=== PATIENT | female | born 1950 | race African-American/Black ===

== ENCOUNTER 2017-03-14 12:32 | Emergency (ER) | payer OTHER ==
[~2017-03-14] VITALS: Ht 162.6 cm; Wt 70.0 kg
[2017-03-14 12:48] VITALS: BP 178/83; PULSE 112; RESP 18; TEMP 98.4; O2SAT 100
--- NOTE | 2017-03-14 13:23 | PD ---
HPI Chief Complaint: Abdominal Pain Time Seen by Provider: 13:21 Travel History International Travel<30 days: No Contact w/Intl Traveler<30days: No Traveled to known affect area: No History of Present Illness HPI Patient comes in complaining of generalized abdominal pain that began after eating breakfast this morning. Patient reports nonbloody vomit times 3 episodes and associated nausea with this. Patient family at bedside states that patient has metastatic breast cancer to the liver and was having her ascites treated with Lasix however feels is not working currently. Patient denies any chest pain, shortness of breath, fevers, or loss of bowel or bladder. PFSH Past Medical History Cancer: Yes (metastatic breast) Social History Tobacco Use: No Substance Use: No Allergies-Medications (Allergen,Severity, Reaction): Coded Allergies: Codeine (Verified Allergy, Unknown, 03/14/17) Lactose (Verified Allergy, Unknown, 03/14/17) Valium (Verified Allergy, Unknown, 03/14/17) Review of Systems Except as stated in HPI: all other systems reviewed are Neg Physical Exam Narrative GENERAL: Well-developed, overly nourished, in no acute distress, and ill appearing, but nontoxic. SKIN: Focused skin assessment warm and dry. HEAD: Atraumatic. Normocephalic. EYES: Pupils equal and round. EOMI. No scleral icterus. No injection or drainage. ENT: No nasal bleeding or discharge. Mucous membranes pink and moist. NECK: Trachea midline. Supple. No nuclear rigidity. CARDIOVASCULAR: Regular rate and rhythm. No murmur appreciated. RESPIRATORY: No accessory muscle use. No respiratory distress. Clear to auscultation. Breath sounds equal bilaterally. GASTROINTESTINAL: Abdomen firm, tender, distended. Hepatic and splenic margins not palpable. Normal bowel sounds 4. No pulsatile mass. MUSCULOSKELETAL: No obvious deformities. No clubbing. No cyanosis. No edema. Full range of motion. NEUROLOGICAL: Awake and alert. No obvious cranial nerve deficits. Motor grossly within normal limits. Normal speech. PSYCHIATRIC: Appropriate mood and affect; insight and judgment normal. Data Data Last Documented VS Vital Signs Date Time Temp Pulse Resp B/P Pulse Ox O2 Delivery O2 Flow Rate FiO2 03/14/17 12:48 98.4 112 18 178/83 100 Orders Complete Blood Count With Diff (03/14/17 13:17) Comprehensive Metabolic Panel (03/14/17 13:17) Lipase (03/14/17 13:17) Prothrombin Time / Inr (Pt) (03/14/17 13:17) Act Partial Throm Time (Ptt) (03/14/17 13:17) Urinalysis - C+S If Indicated (03/14/17 13:17) Ct Abd/Pel W Iv Contrast(Rout) (03/14/17 13:17) Iv Access Insert/Monitor (03/14/17 13:17) Ecg Monitoring (03/14/17 13:17) Oximetry (03/14/17 13:17) Electrocardiogram (03/14/17 13:17) Labs Laboratory Tests Test 03/14/17 13:50 White Blood Count 4.3 TH/MM3 Red Blood Count 3.02 MIL/MM3 Hemoglobin 8.9 GM/DL Hematocrit 25.7 % Mean Corpuscular Volume 85.3 FL Mean Corpuscular Hemoglobin 29.6 PG Mean Corpuscular Hemoglobin 34.7 % Concent Red Cell Distribution Width 16.6 % Platelet Count 61 TH/MM3 Mean Platelet Volume 9.9 FL Neutrophils (%) (Auto) 86.9 % Lymphocytes (%) (Auto) 6.3 % Monocytes (%) (Auto) 6.1 % Eosinophils (%) (Auto) 0.4 % Basophils (%) (Auto) 0.3 % Neutrophils # (Auto) 3.7 TH/MM3 Lymphocytes # (Auto) 0.3 TH/MM3 Monocytes # (Auto) 0.3 TH/MM3 Eosinophils # (Auto) 0.0 TH/MM3 Basophils # (Auto) 0.0 TH/MM3 CBC Comment AUTO DIFF MDM Medical Decision Making Medical Screen Exam Complete: Yes Emergency Medical Condition: Yes Differential Diagnosis Ascites, small bowel obstruction, ileus, ischemic bowel, other Narrative Course Patient was seen and examined. Initial laboratory radiological studies were ordered. Patient was signed out to Gurvinder Girard PA-C. Please see his documentation for final diagnosis and disposition. Cooper Mills Mar 14, 2017 13:23
[2017-03-14 14:07] LABS: AUTOMATED NEUTROPHIL # 3.7 TH/MM3 (1.8-7.7); BASOPHIL % 0.3 % (0.0-2.0); EOSINOPHIL % 0.4 % (0.0-4.0); HEMATOCRIT 25.7 % (35.0-46.0); LYMPH % 6.3 % (9.0-44.0); LYMPHOCYTE # 0.3 TH/MM3 (1.0-4.8); MEAN CELL VOLUME 85.3 FL (80.0-100.0); MEAN CORPUSCULAR HEMOGLOBIN 29.6 PG (27.0-34.0); MEAN CORPUSCULAR HGB CONC 34.7 % (32.0-36.0); MONO % 6.1 % (0.0-8.0); NEUT % 86.9 % (16.0-70.0); PLATELET COUNT 61 TH/MM3 (150-450); RED BLOOD COUNT 3.02 MIL/MM3 (4.00-5.30); RED CELL DISTRIBUTION WIDTH 16.6 % (11.6-17.2); WHITE BLOOD COUNT 4.3 TH/MM3 (4.0-11.0)
[2017-03-14 14:11] LABS: HEMO FLAGS AUTO DIFF
--- NOTE | 2017-03-14 14:13 | PD ---
HPI Chief Complaint: Abdominal Pain Time Seen by Provider: 14:13 Travel History International Travel<30 days: No Contact w/Intl Traveler<30days: No Traveled to known affect area: No History of Present Illness HPI 66-year-old Afro-[place]ien female presents to the emergency department via ambulance with history of metastatic breast cancer with metastatic liver lesions and secondary ascites, presents to emergency department with increasing abdominal pain, nausea and vomiting 1 this morning. Patient is normally treated with a [facility], but the brought her here due to her acute nature this morning. Patient is currently on chemotherapy weekly, and has been taking Lasix for her abdominal ascites. Patient's states that she takes a medication to lower her calcium was seems to be high due to her clinical condition. Patient has oxycodone that she takes occasionally for pain, but she did not take any of this this morning. Patient states that she woke up feeling well this morning and had some breakfast and laid down for a nap. She woke up with excruciating abdominal pain, and nausea. Patient has had some shortness of breath with it as well. Patient denies fever, chills, or other symptoms. Patient was originally seen by Emiliano Mills PA-C in the ambulance ha. EKG, Labs were ordered as well as CT of the abdomen. I'm now seeing the patient and Ang salvador. Patient has a history of allergies to codeine, lactose, and Valium. PFSH Past Medical History Cancer: Yes (metastatic breast) Social History Alcohol Use: No Tobacco Use: No Substance Use: No Allergies-Medications (Allergen,Severity, Reaction): Coded Allergies: Codeine (Verified Allergy, Unknown, 03/14/17) Lactose (Verified Allergy, Unknown, 03/14/17) Valium (Verified Allergy, Unknown, 03/14/17) Review of Systems Except as stated in HPI: all other systems reviewed are Neg General / Constitutional: No: Fever Eyes: No: Visual changes HENT: No: Headaches Cardiovascular: No: Chest Pain or Discomfort Respiratory: No: Shortness of Breath Gastrointestinal: Positive: Nausea, Vomiting, Abdominal Pain, Other (ascites), No: Constipation Genitourinary: No: Dysuria Musculoskeletal: No: Pain Skin: No Rash Neurologic: No: Weakness Psychiatric: No: Depression Endocrine: No: Polydipsia Hematologic/Lymphatic: No: Easy Bruising Physical Exam Narrative GENERAL: Patient appears chronically ill but not acutely septic. SKIN: Warm and dry. Poor pallor. Somewhat poor turgor. HEAD: Atraumatic. Normocephalic. EYES: Pupils equal and round. No scleral icterus. No injection or drainage. ENT: No nasal bleeding or discharge. Mucous membranes pink and dry. Pharynx is clear. Airway is patent. NECK: Trachea midline. No JVD. Supple nontender. CARDIOVASCULAR: Regular rate and rhythm. No murmurs gallops or rubs. RESPIRATORY: No accessory muscle use. Clear to auscultation. Breath sounds equal bilaterally. GASTROINTESTINAL: Abdomen soft, diffusely tender with obvious ascites. Hepatic margins enlarged liver spread of approximately 10 cm. Liver is tender with palpation. MUSCULOSKELETAL: Extremities without clubbing, cyanosis, or edema. No obvious deformities. NEUROLOGICAL: Awake and alert. No obvious cranial nerve deficits. Motor grossly within normal limits. Five out of 5 muscle strength in the arms and legs. Normal speech. PSYCHIATRIC: Appropriate mood and affect; insight and judgment normal. Data Data Last Documented VS Vital Signs Date Time Temp Pulse Resp B/P Pulse Ox O2 Delivery O2 Flow Rate FiO2 03/14/17 14:45 16 03/14/17 14:26 100 Nasal Cannula 2 03/14/17 12:48 98.4 112 178/83 Orders Complete Blood Count With Diff (03/14/17 13:17) Comprehensive Metabolic Panel (03/14/17 13:17) Lipase (03/14/17 13:17) Prothrombin Time / Inr (Pt) (03/14/17 13:17) Act Partial Throm Time (Ptt) (03/14/17 13:17) Urinalysis - C+S If Indicated (03/14/17 13:17) Iv Access Insert/Monitor (03/14/17 13:17) Ecg Monitoring (03/14/17 13:17) Oximetry (03/14/17 13:17) Electrocardiogram (03/14/17 13:17) Ondansetron Inj (Zofran Inj) (03/14/17 14:30) Morphine Inj (Morphine Inj) (03/14/17 14:30) Ct Abd/Pel W/O Iv Contrast (03/14/17 14:41) Ondansetron Inj (Zofran Inj) (03/14/17 15:30) Radiology Film Requests (03/14/17 ) Labs Laboratory Tests Test 03/14/17 13:50 White Blood Count 4.3 TH/MM3 Red Blood Count 3.02 MIL/MM3 Hemoglobin 8.9 GM/DL Hematocrit 25.7 % Mean Corpuscular Volume 85.3 FL Mean Corpuscular Hemoglobin 29.6 PG Mean Corpuscular Hemoglobin 34.7 % Concent Red Cell Distribution Width 16.6 % Platelet Count 61 TH/MM3 Mean Platelet Volume 9.9 FL Neutrophils (%) (Auto) 86.9 % Lymphocytes (%) (Auto) 6.3 % Monocytes (%) (Auto) 6.1 % Eosinophils (%) (Auto) 0.4 % Basophils (%) (Auto) 0.3 % Neutrophils # (Auto) 3.7 TH/MM3 Lymphocytes # (Auto) 0.3 TH/MM3 Monocytes # (Auto) 0.3 TH/MM3 Eosinophils # (Auto) 0.0 TH/MM3 Basophils # (Auto) 0.0 TH/MM3 CBC Comment AUTO DIFF Differential Total Cells 100 Counted Neutrophils % (Manual) 44 % Band Neutrophils % 41 % Lymphocytes % 7 % Monocytes % 5 % Basophils % 1 % Neutrophils # (Manual) 3.7 TH/MM3 Metamyelocytes 2 % Differential Comment FINAL DIFF MANUAL Toxic Granulation 1+ Platelet Estimate LOW Platelet Morphology Comment NORMAL Target Cells 1+ Keratocytes OCC Prothrombin Time 11.3 SEC Prothromb Time International 1.0 RATIO Ratio Activated Partial 27.4 SEC Thromboplast Time Sodium Level 142 MEQ/L Potassium Level 3.1 MEQ/L Chloride Level 115 MEQ/L Carbon Dioxide Level 18.6 MEQ/L Anion Gap 8 MEQ/L Blood Urea Nitrogen 17 MG/DL Creatinine 1.84 MG/DL Estimat Glomerular Filtration 27 ML/MIN Rate Random Glucose 89 MG/DL Calcium Level 11.0 MG/DL Total Bilirubin 1.2 MG/DL Aspartate Amino Transf 54 U/L (AST/SGOT) Alanine Aminotransferase 27 U/L (ALT/SGPT) Alkaline Phosphatase 276 U/L Total Protein 6.0 GM/DL Albumin 2.8 GM/DL Lipase 124 U/L [place] Medical Decision Making Medical Screen Exam Complete: Yes Emergency Medical Condition: Yes Differential Diagnosis Ascites. Abdominal pain. Obstruction. Nausea vomiting. Metastatic breast cancer on chemotherapy. History of hypercalcemia. Narrative Course Patient is medically stable at time of exam. Labs ordered including CBC, CMP, PT/PTT and INR CT of the abdomen is ordered without IV contrast. CBC shows no leukocytosis. RBCs of 3.02, hemoglobin was 8.9, hematocrit is 25.7. CMP shows sodium 142. Potassium 3.1. Chloride of 115, carbon dioxide 18.6. Creatinine of 1.84. Calcium is 11.0. AST is 54. AST is 27. Alkaline phosphatase is 276. Total protein 6.0 and albumin is 2.8. Lipase is 124. Coags are unremarkable. CT scan shows moderate ascites and metastatic disease to the liver as expected. There is no sign of obstruction or acute process per radiologist. 1600 hrs. patient is reassessed and felt to be much improved. Patient is due to go to the cancer [facility] tomorrow, and would like to go home until that time. Patient was offered observation here but would like to go home. Patient was discussed with and seen by Dr. Jones, and the patient is felt stable to be discharged home on her home medications. A copy of the patient's abdominal CT is given to the patient to take with her. Patient is discharged home in the care of her family. Diagnosis Primary Impression: Ascites, malignant Additional Impressions: Nausea & vomiting Qualified Code: R11.2 - Non-intractable vomiting with nausea, unspecified vomiting type Abdominal pain Qualified Code: R10.84 - Generalized abdominal pain Metastatic breast cancer Referrals: Oncologist Patient Instructions: General Instructions, Narcotic given in the ED Additional Instructions: CBC shows no leukocytosis. RBCs of 3.02, hemoglobin was 8.9, hematocrit is 25.7. CMP shows sodium 142. Potassium 3.1. Chloride of 115, carbon dioxide 18.6. Creatinine of 1.84. Calcium is 11.0. AST is 54. AST is 27. Alkaline phosphatase is 276. Total protein 6.0 and albumin is 2.8. Lipase is 124. Coags are unremarkable. CT scan shows moderate ascites and metastatic disease to the liver as expected. There is no sign of obstruction or acute process per radiologist. 1600 hrs. patient is reassessed and felt to be much improved. Patient is due to go to the [facility] tomorrow, and would like to go home until that time. Patient was offered observation here but would like to go home. Patient was discussed with and seen by Dr. Jones, and the patient is felt stable to be discharged home on her home medications. A copy of the patient's abdominal CT is given to the patient to take with her. Patient is discharged home in the care of her family. Med/Other Pt SpecificInfo: No Change to Meds Disposition: 01 DISCHARGE HOME Condition: Stable Gurvinder Girard Mar 14, 2017 14:13
[2017-03-14 14:16] LABS: APTT (PATIENT) 27.4 SEC (24.3-30.1); PROTHROMBIN TIME - PATIENT 11.3 SEC (9.8-11.6)
[2017-03-14 14:23] LABS: ANION GAP 8 MEQ/L (5-15); AST (GOT) 54 U/L (15-37); BICARBONATE 18.6 MEQ/L (21.0-32.0); BLOOD UREA NITROGEN 17 MG/DL (7-18); CHLORIDE 115 MEQ/L (98-107); GLOMERULAR FILTRATION RATE 27 ML/MIN (>89); POTASSIUM 3.1 MEQ/L (3.5-5.1); SODIUM (NA) 142 MEQ/L (136-145)
[2017-03-14 14:26] VITALS: RESP 17; O2SAT 100
[2017-03-14 14:26] LABS: ALKALINE PHOSPHATASE 276 U/L (45-117); ALT (GPT) 27 U/L (10-53); TOTAL BILIRUBIN ADULT 1.2 MG/DL (0.2-1.0)
[2017-03-14] MEDS ORDERED: MORPHINE SULFATE 4 MG/ML INJ IV PUSH ONE (14:30)
[2017-03-14] MEDS ORDERED: ONDANSETRON HCL 4 MG/2 ML VIAL IV PUSH ONE (14:30)
[2017-03-14 14:40] LABS: BANDS 41 % (0-6); BASOPHILS 1 % (0-2); METAMYELOCYTES 2 % (0-1); NEUTROPHIL # MANUAL DIFF 3.7 TH/MM3 (1.8-7.7); POLYS (SEG NEUTROPHILS) 44 % (16-70); WBC DIFF SAMPLE 100
[2017-03-14 14:41] LABS: KERATOCYTES OCC (NORMAL); PLATELET ESTIMATE SMEAR LOW (NORMAL); PLATELET MORPHOLOGY NORMAL (NORMAL); SCAN/DIFF FINAL DIFF MANUAL; TARGET CELLS 1+ (NORMAL)
[2017-03-14 14:42] LABS: TOXIC GRANULATION 1+ (NORMAL)
[2017-03-14] MEDS ORDERED: ONDANSETRON HCL 4 MG/2 ML VIAL IV ONE (15:30)
--- NOTE | 2017-03-14 15:31 | RADRPT ---
EXAM DATE/TIME: 03/14/2017 15:04 [place] COMPARISON: No previous studies available for comparison. INDICATIONS : Abdomen pain. ORAL CONTRAST: No oral contrast ingested. RADIATION DOSE: 12.68 CTDIvol (mGy) MEDICAL HISTORY : Carcinoma, breast. SURGICAL HISTORY : Power port placement ENCOUNTER: Initial ACUITY: 1 day PAIN SCALE: 4/10 LOCATION: TECHNIQUE: Volumetric scanning of the abdomen and pelvis was performed. Using automated exposure control and adjustment of the mA and/or kV according to patient size, radiation dose was kept as low as reasonably achievable to obtain optimal diagnostic quality images. FINDINGS: Abdomen CT: The liver appears cirrhotic with multiple calcifications within it chronic in nature. There are low a ttenuating masses in the liver probably metastatic disease difficult to accurately measure the larges t one measures almost 3.3 cm in size. Slight splenomegaly is present with spleen measuring 16.4 cm in size without focal lesions or technique.The spleen, pancreas, adrenals are unremarkable. There is no evidence for any appreciable pathological adenopathy, or bowel obstruction. There is infiltrate in the right lung base with tiny bilateral pleural effusions. There is moderate amount of ascites throug hout the abdomen and pelvis and there is haziness involving the mesentery may be due to passive conge stion, however peritoneal carcinomatosis is not excluded. There is anterior abdominal wall hernia wit h herniation of mesenteric fat and no evidence for bowel herniation. There are tiny nonobstructing st ones in both kidneys. Pelvic CT: There is no evidence for mass, abscess formation, or any significant adenopathy within the pelvis. IMPRESSION: 1. Cirrhotic appearing liver, splenomegaly and ascites. 2. Haziness of the mesentery with anterior abdominal wall hernia containing mesenteric fat could be d ue to passive congestion, however peritoneal carcinomatosis is not excluded this time. 3. Multiple masses in the liver suspicious for metastatic disease. 4. Tiny nonobstructing stones in both kidneys. Altagracia Ivory MD on March 14, 2017 at 15:23 Board Certified Radiologist. This report was verified electronically.
--- NOTE | 2017-03-14 16:27 | PD ---
Data Data Last Documented VS Vital Signs Date Time Temp Pulse Resp B/P Pulse Ox O2 Delivery O2 Flow Rate FiO2 03/14/17 14:45 16 03/14/17 14:26 100 Nasal Cannula 2 03/14/17 12:48 98.4 112 178/83 Orders Complete Blood Count With Diff (03/14/17 13:17) Comprehensive Metabolic Panel (03/14/17 13:17) Lipase (03/14/17 13:17) Prothrombin Time / Inr (Pt) (03/14/17 13:17) Act Partial Throm Time (Ptt) (03/14/17 13:17) Iv Access Insert/Monitor (03/14/17 13:17) Ecg Monitoring (03/14/17 13:17) Oximetry (03/14/17 13:17) Electrocardiogram (03/14/17 13:17) Ondansetron Inj (Zofran Inj) (03/14/17 14:30) Morphine Inj (Morphine Inj) (03/14/17 14:30) Ct Abd/Pel W/O Iv Contrast (03/14/17 14:41) Ondansetron Inj (Zofran Inj) (03/14/17 15:30) Radiology Film Requests (03/14/17 ) Labs Laboratory Tests Test 03/14/17 13:50 White Blood Count 4.3 TH/MM3 Red Blood Count 3.02 MIL/MM3 Hemoglobin 8.9 GM/DL Hematocrit 25.7 % Mean Corpuscular Volume 85.3 FL Mean Corpuscular Hemoglobin 29.6 PG Mean Corpuscular Hemoglobin 34.7 % Concent Red Cell Distribution Width 16.6 % Platelet Count 61 TH/MM3 Mean Platelet Volume 9.9 FL Neutrophils (%) (Auto) 86.9 % Lymphocytes (%) (Auto) 6.3 % Monocytes (%) (Auto) 6.1 % Eosinophils (%) (Auto) 0.4 % Basophils (%) (Auto) 0.3 % Neutrophils # (Auto) 3.7 TH/MM3 Lymphocytes # (Auto) 0.3 TH/MM3 Monocytes # (Auto) 0.3 TH/MM3 Eosinophils # (Auto) 0.0 TH/MM3 Basophils # (Auto) 0.0 TH/MM3 CBC Comment AUTO DIFF Differential Total Cells 100 Counted Neutrophils % (Manual) 44 % Band Neutrophils % 41 % Lymphocytes % 7 % Monocytes % 5 % Basophils % 1 % Neutrophils # (Manual) 3.7 TH/MM3 Metamyelocytes 2 % Differential Comment FINAL DIFF MANUAL Toxic Granulation 1+ Platelet Estimate LOW Platelet Morphology Comment NORMAL Target Cells 1+ Keratocytes OCC Prothrombin Time 11.3 SEC Prothromb Time International 1.0 RATIO Ratio Activated Partial 27.4 SEC Thromboplast Time Sodium Level 142 MEQ/L Potassium Level 3.1 MEQ/L Chloride Level 115 MEQ/L Carbon Dioxide Level 18.6 MEQ/L Anion Gap 8 MEQ/L Blood Urea Nitrogen 17 MG/DL Creatinine 1.84 MG/DL Estimat Glomerular Filtration 27 ML/MIN Rate Random Glucose 89 MG/DL Calcium Level 11.0 MG/DL Total Bilirubin 1.2 MG/DL Aspartate Amino Transf 54 U/L (AST/SGOT) Alanine Aminotransferase 27 U/L (ALT/SGPT) Alkaline Phosphatase 276 U/L Total Protein 6.0 GM/DL Albumin 2.8 GM/DL Lipase 124 U/L MDM Supervised Visit with EZEQUIEL: Yes Narrative Course The history, exam, and medical decision-making in the associated mid-level provider note were completed with my assistance. I reviewed and agree with the findings presented. I attest that I had a [id number] encounter with the patient on the same day, and personally performed and documented my assessment and findings in the medical record. *My assessment and Findings: 58 year-old woman with widely metastatic breast cancer, on weekly palliative chemotherapy, with Neulasta shot, presents emergency department abrupt onset of abdominal pain. She looks ill. Labs show a bandemia. She received Neulasta think on Tuesday. This could be related. Abdominal CT shows mesenteric edema possibly related to mesenteric malignancy or congestion. Families priorities to get her back to her cancer Center at [facility] tomorrow. We recommended admission and they prefer to take her home. Given her end-stage malignancy, I think this is reasonable. They agree to return for any worsening symptoms. Diagnosis Primary Impression: Ascites, malignant Additional Impressions: Nausea & vomiting Qualified Code: R11.2 - Non-intractable vomiting with nausea, unspecified vomiting type Metastatic breast cancer Abdominal pain Qualified Code: R10.84 - Generalized abdominal pain Referrals: Oncologist Patient Instructions: General Instructions, Narcotic given in the ED Additional Instruction: CBC shows no leukocytosis. RBCs of 3.02, hemoglobin was 8.9, hematocrit is 25.7. CMP shows sodium 142. Potassium 3.1. Chloride of 115, carbon dioxide 18.6. Creatinine of 1.84. Calcium is 11.0. AST is 54. AST is 27. Alkaline phosphatase is 276. Total protein 6.0 and albumin is 2.8. Lipase is 124. Coags are unremarkable. CT scan shows moderate ascites and metastatic disease to the liver as expected. There is no sign of obstruction or acute process per radiologist. 1600 hrs. patient is reassessed and felt to be much improved. Patient is due to go to the cancer center tomorrow, and would like to go home until that time. Patient was offered observation here but would like to go home. Patient was discussed with and seen by Dr. Jones, and the patient is felt stable to be discharged home on her home medications. A copy of the patient's abdominal CT is given to the patient to take with her. Patient is discharged home in the care of her family. Disposition: 01 DISCHARGE HOME Condition: Stable Denny Jones MD Mar 14, 2017 16:27
--- NOTE | 2017-03-14 18:05 | EKG ---
Date Performed: 03/14/2017 Time Performed: 14:22:03 PTAGE: 66 years EKG: SINUS TACHYCARDIA Mild nonspecific ST-T wave changes ABNORMAL RHYTHM ECG NO PREVIOUS TRACING DOCTOR: Neeraj English Interpretating Date/Time 03/14/2017 18:04:53
== END 2017-03-14 17:17 | disposition home or self-care (01) ==
LOC: NEPC 12:32
DX: R18.0 Malignant ascites (principal); C78.7 Secondary malignant neoplasm of liver and intrahepatic bile duct; C50.919 Malignant neoplasm of unspecified site of unspecified female breast; R11.2 Nausea with vomiting, unspecified; D72.825 Bandemia; R94.31 Abnormal electrocardiogram [ECG] [EKG]
CPT/HCPCS: 74176; 80053; 83690; 85007; 85027; 85610; 85730; 93005; 96374; 96375; 99284; J2270; J2405